=== PATIENT | female | born 1985 | race Caucasian/White ===

== ENCOUNTER 2023-12-08 03:40 | Emergency (ER) | payer MEDICARE, SELFPAY ==
[2023-12-08 03:40] VITALS: BMI 23.1
[2023-12-08 03:43] VITALS: BP 119/85
--- NOTE | 2023-12-08 03:57 | ED.GENMED ---
History of Present Illness
General
Chief Complaint: Flank Pain
Source: patient
Exam Limitations: none
Time Seen by Provider: 12/08/23 03:50
Nursing documentation reviewed up to this point in time: agreed with
History of Present Illness
History of Present Illness:
This is a 38-year-old female who complains of right low back pain that began yesterday morning, improved with ibuprofen but has been intermittent throughout the day yesterday and again tonight accompanied with intermittent nausea without vomiting.
She does have prior history of kidney stones having passed a stone approximately 3 years ago and she states pain feels somewhat similar. She also admits that right flank/right low back pain is worse with movement, nonradiating, no leg pain, no
weakness or numbness. No abdominal pain. She denies dysuria and urgency and or hematuria. She denies fevers or chills. No diarrhea nor constipation. No insightful injury.
She takes no medicines on a daily basis save for vitamins.
Last menstrual period 1 month ago, normal and on time, she denies risk of . Has IUD in place.
Past History
Past History
ED Past Medical History: Other (Kidney stones)
ED Past Surgical History: Appendectomy (2013)
Social History
Tobacco: Non-smoker
Alcohol: Occasional
Personal:
Living: with family
Family History
Family History: Other (Noncontributory)
Phy Exam
Physical Exam
Physical Exam:
GENERAL: 38-year-old female appears her stated age, awake and alert, appears in mild to moderate distress related to pain. Right back pain worse with sitting up, lying down, improves mildly with lying still. Vital signs within normal limits.
EYE: pupils equal and round. Anicteric
NECK: Supple, nontender, no meningismus, no significant adenopathy.
ENT: oral mucosa is moist. No rhinorrhea.
CARDIAC: Regular rate and rhythm. no murmur.
LUNGS: Clear breath sounds bilaterally, no acute respiratory distress, no wheezes/rales/rhonchi
ABDOMEN: Soft, nondistended, without focal tenderness, no r/g, no cvat. normoactive BS.
BACK: No midline bony tenderness. Mild tenderness to palpation right lumbar paravertebral region. Straight leg raising is negative bilaterally.
NEUROLOGICAL: Alert and oriented x3, no focal neuro deficits. Gait is steady.
SKIN: Warm and dry, normal color, skin intact. No rash.
MUSCULOSKELETAL: No C/C/E. peripheral pulses are full and equal b/l. No palpable tenderness.
PSYCH: Normal and appropriate interaction.
Course
Orders/Labs/Results
Orders:
Orders
12/08/23 03:50
Test Result ONCE
12/08/23 03:56
0.9% Sodium Chloride 1000 ml [Nss] 1,000 ml IV BOLUS
Ketorolac [Toradol] 30 mg IV NOW STA
Ondansetron Injectable [Zofran] 4 mg IV NOW STA
12/08/23 04:01
Complete Blood Count/With Diff Urgent
Comprehensive Metabolic Panel Urgent
HCG, Serum Qualitative Screen Urgent
Urinalysis Reflex To Culture Urgent
Date Specimen was Collected: 12/08/23
Time Specimen was Collected: 03:53
Urine Microscopic Reflex Cult Urgent
Urine Culture Urgent
JOHNATHAN Source: U
Specimen Description:
Date Specimen was Collected: 12/08/23
Time Specimen was Collected: 03:53
12/08/23 04:53
CT Abd/pel Without Iv Or Oral Urgent
Comment:
Reason For Exam: R flank to R LBP-hx of kidney stones; hematuria
Abnormal Lab Results
12/08/23
04:01
RBC 4.17 L 10^6/uL
(4.20-5.40)
Hct 36.0 L %
(37.0-47.0)
MCH 31.2 H pg
(27.0-31.0)
Chloride 108 H mmol/L
(98-107)
Carbon Dioxide 21 L mmol/L
(22-30)
Glucose 121 H mg/dl
(70-99)
Ur Occult Blood Reflex 1+ A
(Negative)
Leukocyte Esterase Rfl Trace A
(Negative)
Urine RBC 7-10 A /HPF
(0-2)
Urine Bacteria (Reflex) Many A
(Negative)
12/08/23 04:01
12/08/23 04:01
Vital Signs
Initial and Last Documented VS:
Initial Vital Signs
Temp Pulse Resp BP Pulse Ox
97.5 F 106 17 119/85 99
12/08/23 03:43 12/08/23 03:43 12/08/23 03:43 12/08/23 03:43 12/08/23 03:43
Last Documented Vital Signs
Temp Pulse Resp BP Pulse Ox
97.5 F 69 16 104/73 98
12/08/23 03:43 12/08/23 04:42 12/08/23 04:42 12/08/23 04:42 12/08/23 04:42
MDM/Problems Addressed
Differential Diagnosis Includes:
Concern for musculoskeletal right back pain, renal colic, UTI/pyelonephritis. Less likely bowel obstruction.
Will check labs, urinalysis, medicate for pain and nausea.
Will consider imaging depending on results and clinical course.
Chronic conditions affecting care: Previous abdomnial surgery (Previous appendectomy) and Other (Prior history of kidney stones)
*Radiology
Radiology exam reviewed: radiology read reviewed
*Pulse Oximetry
Patient hypoxic: no
*Critical Care Note
Total Time (30-74mins, 75-104mins- exclusive of procedures): Not Applicable
Update Note
Update Note:
12/08/2023 0552 AM
Patient resting comfortably after IV dose of Toradol. She continues with mild to moderate right flank to right low back pain only noted when she sits up, twists her trunk. She continues to have no abdominal pain, no radicular signs or symptoms.
Labs are unremarkable.
CT abdomen pelvis shows no obstructing renal stone but there is note of mild bladder wall thickening.
Preliminary urinalysis shows +1 occult blood, trace leukocyte Estrace. Microscopic is pending but patient has had no UTI symptoms.
12/08/2023 0605 AM
Urine microscopic reveals a contaminated urine specimen with greater than 30 squamous epithelial cells. There is many bacteria however only 3-5 WBCs not consistent with UTI.
Will treat musculoskeletal right back pain with a course of ibuprofen. Recommend rest, local heat.
Prompt follow-up with primary care physician for recheck.
ED Attending Note
-
Portions of this chart may have been created with voice recognition software.� Occasional wrong word or��sound alike� substitutions may have occurred due to the inherent limitations of voice recognition software.
Discharge Plan
Departure
Patient Disposition: Home (Routine Discharge)
Date of Disposition: 12/08/23
Time of Disposition: 06:02
Patient with high blood pressure during this ER visit?: No
Condition: Good
Discharge Problem:
right thoracolumbar muscular back pain
Instructions: Low Back Pain ED
Prescriptions:
New
ibuprofen 600 mg tablet
600 mg PO QID PRN (Reason: fever or pain) Qty: 30 0RF
Referrals:
Ariela Curiel MD [Family Provider] - Call in 1-3 days for appt
Interventions
Interventions:
*Risk Screen - Suicide Last Done: 12/08/23 03:43
*General Assessment Last Done: 12/08/23 03:43
*Neglect/Abuse Screening Last Done: 12/08/23 03:43
*ED COVID-19 Vaccine History Last Done: 12/08/23 03:43
DY-Wdcxbz-Jpgoqlxlwz Assessment Last Done: 12/08/23 05:16
ED-Female Genitourinary Assessment Last Done: 12/08/23 05:16
Discharge Date and Time
Print Language: BOLIVIAN
[2023-12-08] MEDS: NSS 1000 IV (04:02)
[2023-12-08] MEDS: TORADOL 30 MG IV (04:02)
[2023-12-08] MEDS: ZOFRAN 4 MG IV (04:03)
[2023-12-08 04:11] LABS: Urine Albumin Negative (Neg - Trace); Urine Bilirubin Negative (Negative); Urine Character Clear (Clear); Urine Color Yellow; Urine Glucose Negative (Negative); Urine Ketone Negative (Negative); Urine Leukocyte Trace (Negative); Urine Nitrite Negative (Negative); Urine Occult Blood 1+ (Negative); Urine Urobilinogen Negative (Neg - 1+)
[2023-12-08 04:12] LABS: % Basophils 0.6 % (0-2); % Eosinophils 1.3 % (0-6); % Immature Granulocytes 0.2 % (0-0.5); % Lymphocytes 47.1 % (20.5-51.1); % Monocytes 6.5 % (1.7-9.3); % Neutrophils 44.3 % (42.2-75.2); Absolute Eosinophils 0.1 10^3/uL (0-0.7); Absolute Lymphocytes 2.5 10^3/uL (1.2-3.4); Absolute Monocytes 0.4 10^3/uL (0.1-0.6); Absolute Neutrophils 2.4 10^3/uL (1.4-6.5); Mean Corp Hgb Conc. 36.1 g/dL (33.0-37.0); Mean Corpuscular Hgb 31.2 pg (27.0-31.0); Mean Corpuscular Volume 86.3 fL (81.0-99.0); Mean Platelet Volume 9.5 fL (7.4-10.4); Nucleated Red Blood Cells % 0 %; Platelet Count 218 10^3/uL (130-400); Red Blood Cell Count 4.17 10^6/uL (4.20-5.40); Red Cell Dist. Width 11.6 % (11.5-14.5); White Blood Cell Count 5.4 10^3/uL (4.8-10.8)
[2023-12-08 04:25] LABS: HCG, Serum Qualitative Screen Negative
[2023-12-08 04:29] LABS: ALT (SGPT) 14 U/L (0-35); AST (SGOT) 23 U/L (14-36); Albumin 4.3 g/dl (3.5-5.0); Alkaline Phosphatase 75 U/L (38-126); Blood Urea Nitrogen 16 mg/dl (7-17); Calcium 9.2 mg/dl (8.4-10.2); Carbon Dioxide 21 mmol/L (22-30); Chloride 108 mmol/L (98-107); Estimated Creatinine Clearance 102 ml/min; Glucose 121 mg/dl (70-99); Potassium 4.3 mmol/L (3.5-5.1); Sodium 137 mmol/L (135-145); Total Bilirubin 0.6 mg/dl (0.2-1.3); Total Protein 6.9 g/dl (6.3-8.2); eGFR > 60.00
[2023-12-08 04:42] VITALS: BP 104/73
[2023-12-08 05:46] LABS: Urine Mucus Many; Urine Squamous Cell >30 /LPF (Few); Urine Urothelial Cell >30 /LPF (FEW)
[2023-12-08 05:47] LABS: Urine Bacteria Many (Negative)
[2023-12-08 06:11] VITALS: BP 109/73
== END 2023-12-08 06:15 | disposition home or self-care (01) ==
LOC: EMR 03:40
PROVIDERS: EMERGENCY PHYSICIAN Emergency Medicine; FAMILY PHYSICIAN Family Medicine
DX: M54.6 Pain in thoracic spine (principal); Z87.442 Personal history of urinary calculi; Z90.49 Acquired absence of other specified parts of digestive tract
CPT/HCPCS: 99284; 96374; 96375; 74176; 80053; 81003; 81015; 84703; 85025; 87086

== ENCOUNTER 2024-08-14 16:20 | Emergency (ER) | payer MEDICARE, SELFPAY ==
[2024-08-14 16:33] VITALS: BP 109/76
[2024-08-14 17:05] LABS: COVID-19 Antigen Negative (Negative)
--- NOTE | 2024-08-14 17:39 | ED.GENMED ---
History of Present Illness
General
Chief Complaint: Cold/Flu/URI Symptoms
Time Seen by Provider: 08/14/24 17:27
History of Present Illness
History of Present Illness:
Patient presents to the emergency department body aches, fever, cough, sore throat. Symptoms started last Thursday. She has children at home with similar illness. Reports that she is presenting today as it is now hurting in her chest when she
coughs. Denies any shortness of breath. Denies leg swelling.
Past History
Past History
ED Past Medical History: Other (Kidney stones)
ED Past Surgical History: Appendectomy (2013)
Social History
Tobacco: Non-smoker
Alcohol: Occasional
Personal:
Living: with family
Family History
Family History: Other (Noncontributory)
Phy Exam
Physical Exam
Physical Exam:
GENERAL APPEARANCE: Uncomfortable appearing, in no distress
EYES lids/conjunctiva normal
EARS/NOSE/THROAT Mucous membranes moist, uvula midline . There is some pharyngeal erythema but no exudate
HEAD/NECK normocephalic atraumatic, neck is supple.
RESPIRATORY respiratory effort normal, speaks in full sentences, no accessory muscle use. Lungs clear to auscultation without rhonchi, wheezes, rales
CARDIAC Regular rate and rhythm, no edema.
ABDOMINAL Soft, ND/NT. No pulsatile masses on exam, rebound tenderness, Lorenzo sign or pain over Mcburney's point.
MUSCLES/EXTREMITIES No abnormal range of motion, no swelling.
SKIN Warm, pink and dry. No rashes
NEUROLOGICAL Speech is clear and appropriate. Normal level of consciousness. 5/5 strength in all extremities.
PSYCH Normal mood and affect. Judgement/competence is appropriate
Sepsis
Sepsis Screening
Sepsis Assessment: Sepsis Ruled Out
Sepsis Screen
Sepsis Screen: Sepsis Ruled Out
Date: 08/14/24
Time: 22:20
Course
Orders/Labs/Results
Orders:
Orders
08/14/24 16:39
COVID-19 Antigen Urgent
Source: Nasal Swab
Influenza A+B Rapid Molecular Urgent
JOHNATHAN Source: Nasal Swab
Specimen Description:
08/14/24 17:38
Electrocardiogram (*1) Urgent
Reason for Study: Chest Pain
Ketorolac [Toradol] 15 mg IM NOW STA
CR Chest - 2 Views Urgent
Comment:
Reason For Exam: cp
08/14/24 17:39
Acetaminophen [Tylenol] 650 mg PO NOW STA
Vital Signs
Initial and Last Documented VS:
Initial Vital Signs
Temp Pulse Resp BP Pulse Ox
101.9 F H 102 16 109/76 100
08/14/24 16:33 08/14/24 16:33 08/14/24 16:33 08/14/24 16:33 08/14/24 16:33
Last Documented Vital Signs
Temp Pulse Resp BP Pulse Ox
102.8 F H 92 16 106/70 97
08/14/24 18:41 08/14/24 20:10 08/14/24 16:33 08/14/24 20:10 08/14/24 20:10
*Critical Care Note
Total Time (30-74mins, 75-104mins- exclusive of procedures): Not Applicable
ED Attending Note
ED Attending Note
ED Attending Note:
Patient presents with flulike illness found to have influenza B. She is nontoxic-appearing and saturating well on room air. Given atypical chest pain associated with coughing, will check EKG and chest x-ray to rule out pneumonia, pneumothorax
ischemic EKG changes though low suspicion at this time
-
Portions of this chart may have been created with voice recognition software.� Occasional wrong word or��sound alike� substitutions may have occurred due to the inherent limitations of voice recognition software.
Discharge Plan
Departure
Patient Disposition: Home (Routine Discharge)
Date of Disposition: 08/14/24
Time of Disposition: 19:54
Patient with high blood pressure during this ER visit?: No
Discharge Problem:
Influenza B
Instructions: Flu in adults - Discharge instructions
Prescriptions:
No Action
ibuprofen 600 mg tablet
600 mg PO QID PRN (Reason: fever or pain) Qty: 30 0RF
Referrals:
Ariela Curiel MD [Family Provider] -
Interventions
Interventions:
*Risk Screen - Suicide Last Done: 08/14/24 18:27
*General Assessment Last Done: 08/14/24 18:27
*Neglect/Abuse Screening Last Done: 08/14/24 18:27
*ED- Fall Risk Assessment Last Done: 08/14/24 18:27
*ED COVID-19 Vaccine History Last Done: 08/14/24 18:27
*Nursing Disposition Last Done: 08/14/24 20:11
ED- Pulmonary Assessment Last Done: 08/14/24 18:27
Discharge Date and Time
Discharge Date/Time: 08/14/24 20:18
Print Language: UPPER SORBIAN
[2024-08-14] MEDS: TYLENOL 650 MG PO (18:11)
[2024-08-14] MEDS: TORADOL 15 MG IM (18:11)
[2024-08-14 18:41] VITALS: BP 114/72
[2024-08-14 20:10] VITALS: BP 106/70
== END 2024-08-14 20:18 | disposition home or self-care (01) ==
LOC: EMR 16:20
PROVIDERS: Emergency Medicine; EMERGENCY PHYSICIAN Emergency Medicine; FAMILY PHYSICIAN Family Medicine
DX: J10.1 Influenza due to other identified influenza virus with other respiratory manifestations (principal); Z87.442 Personal history of urinary calculi; Z11.52 Encounter for screening for COVID-19
CPT/HCPCS: 96372; 99284; 71046; 87502; 87811; 93005